=== PATIENT | female | born 1995 | race Caucasian/White ===

== ENCOUNTER 2018-10-18 04:28 | Emergency (ER) | payer SELFPAY ==
[2018-10-18 05:14] LABS: ABSOLUTE EOSINOPHILS # (AUTO) 0.1 10^3/uL (0.0-0.6); ABSOLUTE LYMPHOCYTES (AUTO) 1.2 10^3/uL (0.5-4.7); ABSOLUTE MONOCYTES (AUTO) 0.5 10^3/uL (0.1-1.4); ABSOLUTE NEUT (AUTO) 9.5 10^3/uL (1.7-8.2); HEMATOCRIT 33.1 % (36.0-47.0); HEMOGLOBIN 11.1 g/dL (12.0-15.5); LYMPHOCYTES % (AUTO) 10.3 % (13-45); MEAN CORPUSCULAR HEMOGLOBIN 26.2 pg (27.0-33.4); MEAN CORPUSCULAR HGB CONC 33.6 g/dL (32.0-36.0); MEAN CORPUSCULAR VOLUME 78 fl (80-97); MONOCYTES % (AUTO) 4.2 % (3-13); PLATELET COUNT 304 10^3/uL (150-450); RED BLOOD COUNT 4.23 10^6/uL (3.72-5.28); RED CELL DISTRIBUTION WIDTH 13.1 % (11.5-14.0); SEGMENTED NEUTROPHILS % (AUTO) 84.5 % (42-78); TOTAL CELLS COUNTED % (AUTO) 100 %; WHITE BLOOD COUNT 11.2 10^3/uL (4.0-10.5)
[2018-10-18] MEDS ORDERED: ACETAMINOPHEN 325 MG TABLET PO ONE (05:30)
--- NOTE | 2018-10-18 05:30 | ER Document Report ---
ED General - General Chief Complaint: Vaginal Bleeding Stated Complaint: VAGINAL BLEEDING Time Seen by Provider: 10/18/18 04:50 Notes: Patient is a 22-year-old [place] female who presents the emergency department with vaginal bleeding. She was started to feel cramps yesterday afternoon [place] the [place]. She was at [employer] this morning and she was walking in the store and felt more cramping and then started having some vaginal bleeding. She states that the blood was gushing out of her. She denies any pain, but states that there is some cramping. Her last mental cycle was August 31. She does not know if she is . She is sexually active. Denies any vaginal discharge, nausea, vomiting, or diarrhea. - Related Data Allergies/Adverse Reactions: No Known Allergies Allergy (Verified 10/18/18 06:29) Past Medical History - Social History Smoking Status: Never Smoker Frequency of alcohol use: Occasional Drug Abuse: None Family History: Reviewed & Not Pertinent Review of Systems - Review of Systems Notes: REVIEW OF SYSTEMS: CONSTITUTIONAL : Denies recent illness. Denies recent unintentional weight loss. Denies fever, chills, or sweats. EENT: Denies eye, ear, throat, or mouth pain, discharge, or symptoms. Denies nasal or sinus congestion. CARDIOVASCULAR: Denies chest pain. RESPIRATORY: Denies shortness of breath, cough, congestion, difficulty breathing, or wheezing. GASTROINTESTINAL: Denies nausea, vomiting, and diarrhea. Denies abdominal pain. Denies constipation. GENITOURINARY: Denies difficulty urinating, burning, blood in urine, urgency or frequency. FEMALE GENITOURINARY: See HPI MUSCULOSKELETAL: Denies neck and back pain. Denies joint pain or swelling. SKIN: Denies rash, itchiness, or lesions HEMATOLOGIC : Denies easy bruising or bleeding. LYMPHATIC: Denies swollen, painful, enlarged glands. NEUROLOGICAL: Denies no numbness or tingling denies weakness. Denies headache. Denies altered mental status. Denies alteration in speech. PSYCHIATRIC: Denies stress, anxiety, alteration in sleep patterns, or depression. All other systems reviewed and negative. Physical Exam - Vital signs Vitals: Temp Pulse Resp BP Pulse Ox 98 F 121 H 21 H 123/77 100 10/18/18 04:29 10/18/18 04:29 10/18/18 04:29 10/18/18 04:29 10/18/18 04:29 - Notes Notes: PHYSICAL EXAMINATION: GENERAL: Appears well, healthy, well-nourished, no acute distress. HEAD: Normocephalic, atraumatic. EYES: PERRL, conjunctiva normal, all extraocular movements intact, sclera nonicteric ENT: Moist mucous membranes. NECK: Supple, no noticeable swelling, redness, rash. Normal range of motion. LUNGS: Equal breath sounds bilaterally and clear to auscultation. No wheezes rales or rhonchi. CARDIOVASCULAR: S1-S2, regular rate, regular rhythm. Radial pulses 2+, normal. ABDOMEN: Normoactive bowel sounds. Soft, nontender, no guarding, no rebound tenderness, and no masses palpated. EXTREMITIES: Normal strength and range of motion, no pitting or edema. No cyanosis. NEUROLOGICAL: Moves all extremities upon command. Strength 5/5 in all extremities. PSYCH: Normal mood, normal affect. SKIN: Warm, dry. No rash, lesions, ulcerations noted. Normal skin turgor. HIDE TRIMMER: Course - Re-evaluation Re-evalutation: 10/18/18 05:58 Patient's serum hCG is positive. A quantitative hCG will be sent. Her hemoglobin and hematocrit is stable. She is currently in ultrasound. 10/18/18 06:47 Exam was done with SIMON Lux at bedside. contents were expelled during the exam. Dr. Schroeder was called to bedside. She is in agreement with the patient having a spontaneous . contents will be sent for cytology. Patient is grieving appropriately. She states she did not know she was . She was reassured by myself, Dr. Schroeder, and SIMON Lux that this event was not her fault. 10/18/18 Transvaginal ultrasound shows no intrauterine gestational sac. She does have an ovarian cysts, but no abdominal tenderness on exam. It also comments on a possible hematoma or fibroid in the endometrial canal. This may be the contents that was expelled during the patient's physical exam. Patient is to follow-up with an [employer] OFFICER in the [facility], as this is where the patient is from. Patient has B+ blood. No RhoGam indicated. Return precautions were given. Verbal discharge instructions were given to the patient. They verbalized understanding. They are stable for discharge. - Vital Signs Vital signs: Temp Pulse Resp BP Pulse Ox 97.5 F 62 16 100/52 L 99 10/18/18 08:00 10/18/18 08:00 10/18/18 08:00 10/18/18 08:00 10/18/18 08:00 - Laboratory Result Diagrams: 10/18/18 05:00 Laboratory results interpreted by me: 10/18/18 10/18/18 10/18/18 05:00 05:00 05:00 WBC 11.2 H Hgb 11.1 L Hct 33.1 L MCV 78 L MCH 26.2 L Seg Neutrophils % 84.5 H Lymphocytes % 10.3 L Absolute Neutrophils 9.5 H Serum HCG, Qual POSITIVE H Beta HCG, Quant 9895.30 H Discharge - Discharge Clinical Impression: Miscarriage Condition: Stable Disposition: HOME, SELF-CARE Additional Instructions: You were seen today in the emergency department for vaginal bleeding. You spontaneously miscarried. Please follow-up with your primary care provider and an [employer] OFFICER in regards to this visit. Please do not have sex until you follow-up with [employer] OFF[employer]ER. You will continue to have some vaginal bleeding. You can take Tylenol 1000 mg every 6 hours for your pain. Forms: Return to Work
--- NOTE | 2018-10-18 07:21 | RADIOLOGY REPORT (SQ) ---
EXAM: Ultrasound transvaginal CLINICAL DATA: 22-year-old female with heavy bleeding. TECHNICAL DATA: Sonographic imaging of the pelvis was performed transvaginally on 10/18/2018 at 5:48 AM COMPARISONS: None FINDINGS: The uterus is normal in size and configuration and measures: 10.7 x 4.9 x 4.9 cm. The cervical length measures 3.4 cm. There is no evidence of a definite intrauterine gestational sac. There is a nonspecific heterogeneous area of mixed echogenicity adjacent to the endometrial canal without evidence of significant internal Doppler vascularity. This could represent a hematoma or possibly fibroid. The right ovary is slightly increased in size and measures: 5.4 x 2.5 x 3.0 cm. There is a simple appearing cyst arising from the right ovary measuring 3.0 x 1.8 x 2.1 cm. There is normal pulsed and color Doppler flow to the right ovary. There are no right adnexal mass lesions.. The left ovary is grossly normal in size, shape and echogenicity and measures: 2.6 x 2.2 x 1.9 cm. There is normal pulsed and color Doppler flow to the left ovary. There are no left adnexal mass lesions.. There is no free fluid in the pelvis. IMPRESSION: 1. No evidence of an intrauterine gestational sac. 2. Nonspecific, heterogeneous area of mixed echogenicity adjacent to the endometrial canal without significant internal Doppler vascularity. Possible etiologies include a hematoma or possibly fibroid. 3. Simple appearing right ovarian cyst with a maximum dimension of 3.0 cm. No follow-up imaging is recommended. 4. No complex adnexal mass lesions are identified.
[2018-10-18 08:03] VITALS: BP 100/52
== END 2018-10-18 08:04 | disposition home or self-care (01) ==
LOC: ER 04:28
DX: N93.9 Abnormal uterine and vaginal bleeding, unspecified (principal); O03.9 Complete or unspecified spontaneous abortion without complication; N83.201 Unspecified ovarian cyst, right side
CPT/HCPCS: 36415; 76817; 84702; 84703; 85025; 86900; 86901; 88305; 93976; 99284